=== PATIENT | female | born 1935 ===

== ENCOUNTER 2017-10-05 13:52 | Emergency (ER) | payer OTHER ==
[2017-10-05 14:16] VITALS: TEMP 99.3; O2SAT 95
[2017-10-05 15:48] LABS: BASO # 0.1 K/uL (0.0-0.2); BASO % 2.2 % (0.0-2.0); EOS # 0.3 K/uL (0.0-0.7); EOS % 4.5 % (0.0-4.0); LYMPH # 1.6 K/uL (1.0-4.3); LYMPH % 28.8 % (20.0-40.0); MEAN CORPUSCULAR HEMOGLOBIN 31.1 pg (27.0-31.0); MEAN CORPUSCULAR HGB CONC 35.1 g/dL (33.0-37.0); MEAN PLATELET VOLUME 7.4 fL (7.2-11.7); MONO # 0.5 K/uL (0.0-0.8); MONO % 8.4 % (0.0-10.0); NEUT # 3.1 K/uL (1.8-7.0); NEUT % 56.1 % (50.0-75.0); RBC 4.17 Mil/uL (3.80-5.20); RED CELL DISTRIBUTION WIDTH 13.2 % (11.5-14.5); WHITE BLOOD COUNT 5.6 K/uL (4.8-10.8)
[2017-10-05 16:01] LABS: ALB/GLOB RATIO 1.2 (1.0-2.1); ALBUMIN 3.9 g/dL (3.5-5.0); ALT/SGPT 16 U/L (9-52); AST/SGOT 29 U/L (14-36); BLOOD UREA NITROGEN 19 mg/dL (7-17); CALCIUM 8.9 mg/dl (8.6-10.4); GFR AFRICAN-AMERICAN > 60; GFR NON-AFRICAN AMERICAN > 60
[2017-10-05 16:03] LABS: MEAN CELL VOLUME 88.7 fL (81.0-99.0)
--- NOTE | 2017-10-05 16:22 | C.PDOC ---
History Of Present Illness Pt c/o b/l eye itching an tearing. Pt's BP was found to be elevated. He has a h/ o HTN. She is on Atenolol 100mg and Amlodipine 10mg daily. Family states that she ran out of her Atenolol yesterday and she took her last dose of Amlodipine today. They are requesting med refill. Time Seen by Provider: 10/05/17 14:17 Chief Complaint (Nursing): Eye Problem History Per: Patient, Family Onset/Duration Of Symptoms: Days (about 2 weeks) Current Symptoms Are (Timing): Still Present Injury To Eye?: No Severity: Moderate Quality: Other (Itchy) Associated Symptoms: Itching, Discharge From Eye (watery) Additional History Per: Prior Records Past Medical History Reviewed: Historical Data, Nursing Documentation, Vital Signs Vital Signs: Last Vital Signs Temp 99.3 F 10/05/17 14:12 Pulse 65 10/05/17 16:29 Resp 20 10/05/17 16:29 BP 185/93 H 10/05/17 16:29 Pulse Ox 95 10/05/17 16:29 - Medical History PMH: HTN - [facility] Procedures INJECT/INFUSE NEC (01/16/13) Family History: States: Unknown Family Hx - Social History Hx Alcohol Use: No Hx Substance Use: No - Immunization History Hx Tetanus Toxoid Vaccination: No Hx Influenza Vaccination: No Hx Pneumococcal Vaccination: No Review Of Systems Except As Marked, All Systems Reviewed And Found Negative. Constitutional: Negative for: Fever Eyes: Positive for: Conjunctivae Inflammation ENT: Negative for: Nose Congestion Cardiovascular: Negative for: Chest Pain Respiratory: Negative for: Shortness of Breath Gastrointestinal: Negative for: Vomiting, Abdominal Pain Musculoskeletal: Negative for: Neck Pain Skin: Negative for: Rash Neurological: Negative for: Weakness, Numbness, Seizures, Altered Mental Status Physical Exam - Physical Exam Appears: Non-toxic, No Acute Distress Skin: Normal Color, Warm, Dry Head: Atraumatic, Normacephalic Eye(s): bilateral: PERRL, EOMI, Other (Conjunctival injection) Neck: Normal ROM, Supple Cardiovascular: Rhythm Regular Respiratory: Normal Breath Sounds, No Accessory Muscle Use Gastrointestinal/Abdominal: Soft, No Tenderness Extremity: Normal ROM Neurological/Psych: Oriented x3, Normal Motor, Normal Sensation ED Course And Treatment - Laboratory Results Result Diagrams: 10/05/17 15:38 10/05/17 15:38 Lab Interpretation: No Acute Changes O2 Sat by Pulse Oximetry: 95 Pulse Ox Interpretation: Normal Reassessment Condition: Improved Progress - Interventions Interventions:: Observation - Medications Administered Oral: Antihistamine(H-1), Antihypertensive - Data Reviewed Data Reviewed: Lab, Old records - Patient Status Patient status: Partially improved - Continuity of Care Discussed patient case with:: Patient, Family-HIPPA compliant, ED Nurse - Patient Plan Patient Plan: Discharge, F/U with PCP, Continue present meds Disposition Counseled Patient/Family Regarding: Studies Performed, Diagnosis, Need For Followup, Rx Given - Disposition Referrals: Stephen Erickson MD [Staff Provider] - Disposition: HOME/ ROUTINE Disposition Time: 16:32 Condition: IMPROVED Additional Instructions: Follow up with your doctor. Return to the ER if you develop chest pain, shortness of breath, worsening of symptoms or if you have any other concerns. Prescriptions: amLODIPine [Norvasc] 10 mg PO DAILY #30 tab Atenolol 100 mg PO DAILY #30 tab Ketotifen Fumarate 1 drop OP BID PRN #1 delmi PRN Reason: Itching / Pruritus Loratadine [Claritin] 10 mg PO DAILY #30 tab Instructions: Seasonal Allergies (DC), High Blood Pressure (DC) Print Language: JORDANIAN - Clinical Impression Clinical Impression: Allergic conjunctivitis, Hypertension
[2017-10-05 16:30] VITALS: BP 185/93; PULSE 65; RESP 20
== END 2017-10-05 16:41 | disposition home or self-care (01) ==
LOC: C.ER 13:52
DX: H10.13 Acute atopic conjunctivitis, bilateral (principal); I10 Essential (primary) hypertension

== ENCOUNTER 2018-01-03 09:02 | Inpatient (IN) | payer MEDICAID, OTHER ==
[2018-01-03 09:03] VITALS: BMI 21.9
--- NOTE | 2018-01-03 09:33 | CT ---
Date of service: 01/03/2018 PROCEDURE: CT HEAD WITHOUT CONTRAST. HISTORY: Code Stroke COMPARISON: None available. TECHNIQUE: Axial computed tomography images were obtained through the head/brain without intravenous contrast. Radiation dose: Total exam DLP = 836.04 mGy-cm. This CT exam was performed using one or more of the following dose reduction techniques: Automated exposure control, adjustment of the mA and/or kV according to patient size, and/or use of iterative reconstruction technique. FINDINGS: HEMORRHAGE: No intracranial hemorrhage. BRAIN: Chronic lacune right thalamus. Ill defined lucency left thalamus is indeterminate in age and follow up CT or MRI is recommended. Otherwise, no CT evidence to suggest a large acute subacute infarct at this time. Good corticomedullary differentiation is seen throughout. Proportional, diffuse expansion of the ventriculosulcal and cisternal spaces is appreciated with white matter lucency compatible with diffuse cerebral atrophy and chronic microangiopathy. No suspicious extra-axial fluid collection is identified and the midline brain anatomy appears grossly nonfocal as imaged. There is no mass effect throughout. VENTRICLES: Unremarkable. No hydrocephalus. CALVARIUM: No fracture or destructive bony lesion identified. Atherosclerotic cavernous internal carotid segments are identified bilaterally. PARANASAL SINUSES: Unremarkable as visualized. No significant inflammatory changes. MASTOID AIR CELLS: Unremarkable as visualized. No inflammatory changes. OTHER FINDINGS: None. IMPRESSION: A small lucency at the left thalamus may reflect a small acute subacute infarct although it may also reflect a chronic lacune. Its appearance is indeterminate. Follow-up CT or MRI is recommended. A chronic lacune is seen the right thalamus. No acute or subacute lobar brain infarction appreciated otherwise with age-appropriate age related neuro degenerative change identified. Findings discussed with Dr. Verduzco with written down and read back verification 01/03/2018, 9:30 a.m..
[2018-01-03 09:41] LABS: BASO # 0.1 K/uL (0.0-0.2); BASO % 1.4 % (0.0-2.0); EOS # 0.1 K/uL (0.0-0.7); EOS % 1.5 % (0.0-4.0); HEMOGLOBIN 11.7 g/dL (11.0-16.0); LYMPH # 0.9 K/uL (1.0-4.3); LYMPH % 15.8 % (20.0-40.0); MEAN CELL VOLUME 89.6 fL (81.0-99.0); MEAN CORPUSCULAR HGB CONC 34.6 g/dL (33.0-37.0); MEAN PLATELET VOLUME 7.5 fL (7.2-11.7); MONO # 0.4 K/uL (0.0-0.8); MONO % 6.4 % (0.0-10.0); NEUT # 4.3 K/uL (1.8-7.0); NEUT % 74.9 % (50.0-75.0); RBC 3.76 Mil/uL (3.80-5.20); RED CELL DISTRIBUTION WIDTH 13.6 % (11.5-14.5); WHITE BLOOD COUNT 5.7 K/uL (4.8-10.8)
[2018-01-03 09:48] LABS: INR 1.1; PROTHROMBIN TIME 11.9 SECONDS (9.7-12.2)
[2018-01-03 09:54] LABS: ALB/GLOB RATIO 1.3 (1.0-2.1); ALBUMIN 3.8 g/dL (3.5-5.0); ALT/SGPT 31 U/L (9-52); AST/SGOT 20 U/L (14-36); BLOOD UREA NITROGEN 30 mg/dL (7-17); CALCIUM 9.2 mg/dl (8.6-10.4); GFR AFRICAN-AMERICAN 58; GFR NON-AFRICAN AMERICAN 48
[2018-01-03 10:05] LABS: LDL CHOLESTEROL 116 mg/dL (0-129)
--- NOTE | 2018-01-03 10:06 | C.PDOC ---
History Of Present Illness 82 y/o female, w/PMhx of HTN, brought to ER by family for evaluation after she felt weak and fell in the morning. Family states that she was crying and she was not able to get up from the floor. Family reports that her speech was not normal so they decided to bring her to the ER. They note that she has been under a lot of stress because her daughter had open- heart surgery. Time Seen by Provider: 01/03/18 09:06 Chief Complaint (Nursing): Weakness/Neurological Deficit History Per: Family History/Exam Limitations: no limitations Onset/Duration Of Symptoms: Hrs Current Symptoms Are (Timing): Still Present Seizure Or Post-ictal Symptoms: None Severity: Moderate - Symptoms Of CVA Associated Symptoms: Impaired Speech Past Medical History Reviewed: Historical Data, Nursing Documentation, Vital Signs Vital Signs: Last Vital Signs Temp 97.5 F L 01/03/18 09:08 Pulse 55 L 01/03/18 11:58 Resp 16 01/03/18 11:58 BP 147/80 01/03/18 11:58 Pulse Ox 97 01/03/18 12:07 - Medical History PMH: HTN Surgical History: No Surg Hx - [facility] Procedures INJECT/INFUSE NEC (01/16/13) Family History: States: No Known Family Hx - Social History Hx Alcohol Use: No Hx Substance Use: No - Immunization History Hx Tetanus Toxoid Vaccination: No Hx Influenza Vaccination: No Hx Pneumococcal Vaccination: No Review Of Systems Except As Marked, All Systems Reviewed And Found Negative. Constitutional: Positive for: Weakness. Negative for: Fever, Chills Cardiovascular: Negative for: Chest Pain Respiratory: Negative for: Cough, Shortness of Breath Neurological: Positive for: Change in Speech Physical Exam - Physical Exam Appears: Non-toxic, No Acute Distress Skin: Normal Color, Warm, Dry Head: Atraumatic, Normacephalic Eye(s): bilateral: Normal Inspection, PERRL, EOMI Nose: Normal Oral Mucosa: Moist Neck: Supple Chest: Symmetrical Cardiovascular: Rhythm Regular Respiratory: Normal Breath Sounds, No Rales, No Rhonchi, No Wheezing Gastrointestinal/Abdominal: Normal Exam, Soft, No Tenderness, No Guarding, No Rebound Neurological/Psych: Normal Cranial Nerves, Normal Motor, Normal Sensation, Other (pt is not speaking, tongue stuck in mouth) Gait: Unable To Assess Extremity: Right: No Drift, Left: No Drift, Upper: No Drift, Lower: No Drift ED Course And Treatment - Laboratory Results Result Diagrams: 01/03/18 09:35 01/03/18 09:35 Lab Interpretation: No Acute Changes ECG: Interpreted By Me ECG Rhythm: Sinus Bradycardia ECG Interpretation: Normal Rate From EC O2 Sat by Pulse Oximetry: 97 (RA) Pulse Ox Interpretation: Normal - Other Rad No standard instances X-Ray: Viewed By Me, Read By Radiologist Interpretation: FINDINGS: LUNGS: Interval worsening of patchy opacities in the mid and lower portion of the lungs since the previous exam. The possibility of pulmonary vascular congestion or less likely multifocal pneumonia should be considered. PLEURA: No significant pleural effusion identified, no pneumothorax apparent. CARDIOVASCULAR: Normal. OSSEOUS STRUCTURES: No significant abnormalities. VISUALIZED UPPER ABDOMEN: Normal. OTHER FINDINGS: Right subclavian vascular stent is noted in place. IMPRESSION: Suspicious for interval worsening of pulmonary vascular congestion since the previous exam. A possibility of infectious or inflammatory process is not totally excluded. - CT Scan/US CT- Head Other Rad Studies (CT/US): Read By Radiologist, Radiology Report Reviewed CT/US Interpretation: Date of service: 01/03/2018. PROCEDURE: CT HEAD WITHOUT CONTRAST. HISTORY: Code Stroke. COMPARISON: None available. TECHNIQUE: Axial computed tomography images were obtained through the head/ brain without intravenous contrast. Radiation dose: Total exam DLP = 836.04 mGy-cm. This CT exam was performed using one or more of the following dose reduction techniques: Automated exposure control, adjustment of the mA and/or kV according to patient size, and/or use of iterative reconstruction technique. FINDINGS: HEMORRHAGE: No intracranial hemorrhage. BRAIN: Chronic lacune right thalamus. Ill defined lucency left thalamus is indeterminate in age and follow up CT or MRI is recommended. Otherwise, no CT evidence to suggest a large acute subacute infarct at this time. Good corticomedullary differentiation is seen throughout. Proportional, diffuse expansion of the ventriculosulcal and cisternal spaces is appreciated with white matter lucency compatible with diffuse cerebral atrophy and chronic microangiopathy. No suspicious extra-axial fluid collection is identified and the midline brain anatomy appears grossly nonfocal as imaged. There is no mass effect throughout. VENTRICLES: Unremarkable. No hydrocephalus. CALVARIUM: No fracture or destructive bony lesion identified. Atherosclerotic cavernous internal carotid segments are identified bilaterally. PARANASAL SINUSES: Unremarkable as visualized. No significant inflammatory changes. MASTOID AIR CELLS: Unremarkable as visualized. No inflammatory changes. OTHER FINDINGS: None. IMPRESSION: A small lucency at the left thalamus may reflect a small acute subacute infarct although it may also reflect a chronic lacune. Its appearance is indeterminate. Follow-up CT or MRI is recommended. A chronic lacune is seen the right thalamus. No acute or subacute lobar brain infarction appreciated otherwise with age-appropriate age related neuro degenerative change identified. Findings discussed with Dr. Verduzco with written down and read back verification 01/03/2018, 9:30 a.m.. Progress Note: Case discussed with neurology buttonhole machine operator who request ASA and MRI. Treated with rectal ASA. Case discussed with Dr Wilson Reassessment Condition: Unchanged - Physician Consult Information Physician Contacted: Keisha Wilson Outcome Of Conversation: admit NIHSS Stroke Scale 2 - Date/Time Evaluation Performed When Was NIHSS Performed: Code Stroke - How Severe is the Stroke Level of Consciousness: 0=Alert LOC to Questions: 0=Both comments correct LOC to commands: 0=Obeys both correctly Best Gaze: 0=Normal Visual: 0=No visual loss Facial: 0=Normal Motor Arm - Left: 0=No drift Motor Arm - Right: 0=No drift Motor Leg - Left: 0=No drift Motor Leg - Right: 0=No drift Limb Ataxia: 0=Absent Sensory: 0=Normal Best Language: 0=No aphasia Dysarthia: 1=Mild to moderate slurring Extinction & Inattention (Neglect): 0=Normal, no object Score: 1 rTPA Inclusion/Exclusion - Refusal of Treatment Patient Refused Treatment: Yes - Inclusion Criteria for Altepase Patient is 18 years or Older: No The Clinical Diagnosis of Ischemic Stroke That is Causing a Potentially Disabling Neurological Deficit: No Time of Onset is Well Established to be Less Than 270 Minute Before Treatment Would Begin: No Risk/Benefit Discussed With Patient/Family Member Present: No - Warning to TPA With Conditions Condition: Stroke Serevity Too Mild Additional Condition (For 3-4.5 Hour Window): Age Greater Than 80 Medical Decision Making Medical Decision Making: Plan: --Labs --CT-Head --CXR --MRI --Aspirin PO Disposition Discussed With DrMonica: Keisha Wilson Doctor Will See Patient In The: Hospital - Disposition Disposition: HOSPITALIZED Disposition Time: 11:00 Condition: STABLE - POA Present On Arrival: None - Clinical Impression Clinical Impression: Speech abnormality, Muscle weakness - PA / BUS ESCORT / Resident Statement MD/DO has reviewed & agrees with the documentation as recorded. - Scribe Statement The provider has reviewed the documentation as recorded by the Kyleribe Campos Lane Provider Attestation All medical record entries made by the Scribe were at my direction and personally dictated by me. I have reviewed the chart and agree that the record accurately reflects my personal performance of the history, physical exam, medical decision making, and the department course for this patient. I have also personally directed, reviewed, and agree with the discharge instructions and disposition. Decision To Admit - Pt Status Changed To: Hospital Disposition Of: Inpatient - Admit Certification Admit to Inpatient:: After my assessment, the patient will require hospitalization for at least two midnights. This is because of the severity of symptoms shown, intensity of services needed, and/or the medical risk in this patient being treated as an outpatient. - InPatient: Physician Admission Certification: I certify that this patient requires 2 or more midnights of care for the following reason:: Speech disturbance. Weakness. R/O CVA - . Bed Request Type: Telemetry Admitting Physician: Keisha Wilson Patient Diagnosis: Speech abnormality, Muscle weakness
--- NOTE | 2018-01-03 10:12 | RAD ---
Date of service: 01/03/2018 HISTORY: Code Stroke COMPARISON: Chest radiographs 10/06/2014. FINDINGS: LUNGS: Overall pulmonary volume diminished. No definite interval airspace disease identified bilaterally. PLEURA: No significant pleural effusion identified, no pneumothorax apparent. CARDIOVASCULAR: Stable cardiac size at upper limits of normal. No pulmonary vascular congestion. Aortic atherosclerosis and ectasis reiterated. OSSEOUS STRUCTURES: No significant abnormalities. VISUALIZED UPPER ABDOMEN: Normal. OTHER FINDINGS: None. IMPRESSION: No interval infiltrate or pleural effusion identified. No pneumothorax bilaterally. Pulmonary volume diminished. No pulmonary vascular congestion.
--- NOTE | 2018-01-03 10:16 | CP.PCM.CON ---
History of Present Illness - History of Present Illness History of Present Illness: Neurology Consult Note for Dr. Bates 82 year old female with PMHx of hypertension and hyperlipidemia presents with complaints of chest discomfort, slurred speech, and generalized weakness. Code Stroke called at 9:10. Per patient's daughter, patient has been complaining of chest pain for the past couple of days. This morning around 6:00, patient began complaining about generalized weakness and trouble speaking due to tongue heaviness. Patient denies any headache, dizziness, vision changes, focal weakness, or sensory loss. ROS POSITIVES: Generalized weakness, trouble speaking, chest discomfort NEGATIVES: headache, dizziness, blurred vision, focal weakness, sensory loss , abdominal pain, nausea, vomiting PMHx: HTN, HLD PSHx: Denies Allergies: Denies Social Hx: Denies Tobacco, EtoH, and illicit drug use Hos: Unspecified Ear infection 3 years ago FamHx: Denies Meds: Amlodipine 10mg, Enalapril 20mg Review of Systems - Review of Systems All systems: reviewed and no additional remarkable complaints except (As per HPI ) Review of Systems: As per HPI Past Patient History - Infectious Disease Hx of Infectious Diseases: None - Past Social History Smoking Status: Never Smoked - CARDIAC Hx Hypertension: Yes - PSYCHIATRIC Hx Substance Use: No - SURGICAL HISTORY Hx Surgeries: No - ANESTHESIA Hx Anesthesia: No Meds Allergies/Adverse Reactions: Allergies Allergy/AdvReac Type Severity Reaction Status Date / Time No Known Allergies Allergy Verified 10/05/17 14:16 Physical Exam - Constitutional Appears: Non-toxic, No Acute Distress - Head Exam Head Exam: ATRAUMATIC, NORMAL INSPECTION, NORMOCEPHALIC - Eye Exam Eye Exam: EOMI, Normal appearance. absent: Scleral icterus - ENT Exam ENT Exam: Mucous Membranes Dry Additional comments: Tongue Swollen. - Neck Exam Neck exam: Positive for: Full Rom - Respiratory Exam Respiratory Exam: absent: Accessory Muscle Use - Cardiovascular Exam Cardiovascular Exam: +S1, +S2. absent: Irregular Rhythm, JVD - GI/Abdominal Exam GI & Abdominal Exam: Normal Bowel Sounds. absent: Tenderness - Neurological Exam Neurological exam: Alert, CN II-XII Intact, Oriented x3 - Expanded Neurological Exam Expanded Patient oriented to: person, place, time Speech: Garbled Speech Cranial nerves: EOM's Intact: Normal, Facial Palsey w/Forehead Movement: Normal , Facial Palsey w/o Forehead Movement: Normal, Facial Sensation: Normal, Gag Reflex: Normal, Tongue Deviation: Normal Ataxia: No Cerebellar Function: Heel to Connell: Normal Upper motor neuron: Babinski Sign: Normal Neuro motor strength exam: Left Upper Extremity: 5, Right Upper Extremity: 5, Left Lower Extremity: 5, Right Lower Extremity: 5 - Psychiatric Exam Psychiatric exam: Normal Affect Results - Vital Signs Recent Vital Signs: Last Vital Signs Temp 97.5 F L 01/03/18 09:08 Pulse 57 L 01/03/18 09:46 Resp 16 01/03/18 09:46 BP 116/66 01/03/18 09:46 Pulse Ox 97 01/03/18 10:06 - Labs Result Diagrams: 01/03/18 09:35 01/03/18 09:35 Labs: Laboratory Results - last 24 hr 01/03/18 01/03/18 01/03/18 09:35 09:35 09:35 WBC 5.7 RBC 3.76 L Hgb 11.7 Hct 33.7 L MCV 89.6 MCH 31.0 MCHC 34.6 RDW 13.6 Plt Count 238 MPV 7.5 Neut % (Auto) 74.9 Lymph % (Auto) 15.8 L Martin % (Auto) 6.4 Eos % (Auto) 1.5 Baso % (Auto) 1.4 Neut # (Auto) 4.3 Lymph # (Auto) 0.9 L Martin # (Auto) 0.4 Eos # (Auto) 0.1 Baso # (Auto) 0.1 PT 11.9 INR 1.1 APTT 30 Sodium 141 Potassium 4.6 Chloride 103 Carbon Dioxide 27 Anion Gap 15 BUN 30 H Creatinine 1.1 Est GFR ( Amer) 58 Est GFR (Non-Af Amer) 48 Random Glucose 119 H Hemoglobin A1c Calcium 9.2 Total Bilirubin 0.4 AST 20 ALT 31 Alkaline Phosphatase 74 Total Protein 6.7 Albumin 3.8 Globulin 2.9 Albumin/Globulin Ratio 1.3 Triglycerides 144 D Cholesterol 187 LDL Cholesterol Direct 116 Blood Type 01/03/18 01/03/18 09:35 09:35 WBC RBC Hgb Hct MCV MCH MCHC RDW Plt Count MPV Neut % (Auto) Lymph % (Auto) Martin % (Auto) Eos % (Auto) Baso % (Auto) Neut # (Auto) Lymph # (Auto) Martin # (Auto) Eos # (Auto) Baso # (Auto) PT INR APTT Sodium Potassium Chloride Carbon Dioxide Anion Gap BUN Creatinine Est GFR ( Amer) Est GFR (Non-Af Amer) Random Glucose Hemoglobin A1c 6.0 Calcium Total Bilirubin AST ALT Alkaline Phosphatase Total Protein Albumin Globulin Albumin/Globulin Ratio Triglycerides Cholesterol LDL Cholesterol Direct Blood Type O POSITIVE Assessment & Plan - Assessment and Plan (Free Text) Assessment: 82 year old female with PMHx of hypertension and hyperlipidemia presents with complaints of chest discomfort, slurred speech, and generalized weakness. Code Stroke called at 9:10. Plan: 1. Code Stroke NIHSS of 0 CT Head w/o contrast (Adm) A small lucency at the left thalamus may reflect a small acute subacute infarct although it may also reflect a chronic lacune. Its appearance is indeterminate. Follow-up CT or MRI is recommended. A chronic lacune is seen the right thalamus. No acute or subacute lobar brain infarction appreciated otherwise with age-appropriate age related neuro degenerative change identified. -Brain MRI -Daily ASA 325 -Blood Pressure Control All management per Dr. Jana Hazel, PGY-1 NIHSS Stroke Scale - Date/Time Evaluation Performed Date Performed: 01/03/18 Time Performed: 09:50 When Was NIHSS Performed: Baseline - How Severe is the Stoke Level of Consciousness: 0=Alert LOC to Questions: 0=Both comments correct LOC to commands: 0=Obeys both correctly Best Gaze: 0=Normal Visual: 0=No visual loss Facial: 0=Normal Motor Arm - Left: 0=No drift Motor Arm - Right: 0=No drift Motor Leg - Left: 0=No drift Motor Leg - Right: 0=No drift Limb Ataxia: 0=Absent Sensory: 0=Normal Best Language: 0=No aphasia Dysarthia: 0=Normal articulation Extinction & Inattention (Neglect): 0=Normal, no object Score: 0 Severity Of Stroke: 0= No Stroke
[2018-01-03 10:20] LABS: HDL CHOLESTEROL 34 mg/dL (30-70)
--- NOTE | 2018-01-03 10:30 | CP.PCM.HP ---
History of Present Illness - History of Present Illness History of Present Illness: 82 year old female with past medical history of HTN, impaired glucose tolerance , latent TB, osteoarthritis presents to the ER for body weakness. Patient states around 6am this morning when she was trying to get dressed she started to feel like her whole body felt weak and her tongue felt heavy and her vision was slightly blurry. She states she felt like she couldn't move her body. She states this has never occurred in the past. She states her grandson found her on the bed and could hear him speaking but was not able to respond. Her grandson called the ambulance who brought her to the hospital. She states these symptoms lasted for 4 hours. She states at that time she did not feel numbness or tingling. She denies current weakness, numbness, tingling, chest pain, palpitations, blurry vision or shortness of breath. Her daughter also states she has noticed her mother has lost about 20lbs in the past year. Patient states she has had a decrease in appetite for the past 1-2 years. Patient also states she recently had an appointment with Dr. Erickson who stopped one of her blood pressure medications (Atenolol) and told her to be evaluated for her instable gait. Patient had a clinic appointment today to be evaluated for her gait instability but per daughter the patient does not was to use a walker or a cane. Patient states she has been feeling like she is going to sway and fall over as she walks for the past 3 months. She states about 15 days ago she fell backwards getting out of the shower but she did not seek medical care. PMD: Dr. Venegas Continuous Wave Operator: Dr. Erickson Past Medical History: HTN, impaired glucose tolerance, latent TB, osteoarthritis Past Surgical History: denies Medications: Amlodipine 10mg daily; Lisinopril 20mg daily; discontinued Atenolol 100mg daily Allergies: NKDA Social History: Lives with daughter but her daughter works all day so patient is home alone for most of the day; denies smoking, illicit drug use, and alcohol use. Present on Admission - Present on Admission Any Indicators Present on Admission: No Review of Systems - Constitutional Constitutional: absent: Chills, Fever, Weakness - EENT Eyes: absent: Blurred Vision - Cardiovascular Cardiovascular: absent: Chest Pain, Dyspnea - Respiratory Respiratory: absent: Dyspnea - Gastrointestinal Gastrointestinal: absent: Abdominal Pain, Constipation, Diarrhea, Nausea, Vomiting - Genitourinary Genitourinary: absent: Dysuria - Musculoskeletal Musculoskeletal: Arthralgias. absent: Muscle Weakness, Numbness, Tingling - Neurological Neurological: absent: Confusion, Dizziness, Headaches, Tingling, Tremor, Weakness Past Patient History - Infectious Disease Hx of Infectious Diseases: None - Past Social History Smoking Status: Never Smoked - CARDIAC Hx Hypertension: Yes - PSYCHIATRIC Hx Substance Use: No - SURGICAL HISTORY Hx Surgeries: No - ANESTHESIA Hx Anesthesia: No Meds Allergies/Adverse Reactions: Allergies Allergy/AdvReac Type Severity Reaction Status Date / Time No Known Allergies Allergy Verified 10/05/17 14:16 Physical Exam - Constitutional Appears: Well, Non-toxic, No Acute Distress - Head Exam Head Exam: ATRAUMATIC, NORMAL INSPECTION - Eye Exam Eye Exam: EOMI, Normal appearance, PERRL. absent: Scleral icterus Pupil Exam: NORMAL ACCOMODATION - ENT Exam ENT Exam: Mucous Membranes Dry - Respiratory Exam Respiratory Exam: Clear to Auscultation Bilateral, NORMAL BREATHING PATTERN - Cardiovascular Exam Cardiovascular Exam: REGULAR RHYTHM, +S1, +S2 - Extremities Exam Extremities exam: Positive for: pedal pulses present. Negative for: normal inspection (right great toe is contracted due to hx of arthritis ), pedal edema , tenderness - Neurological Exam Neurological exam: Alert, CN II-XII Intact, Oriented x3 (patient knows she is in the hospital, January, Katelyn is our current president; per family the patient never knows the year ) - Expanded Neurological Exam Expanded Patient oriented to: person, place, time Speech: Fluid Speech Cranial nerves: EOM's Intact: Normal Cerebellar Function: Finger to Nose: Abnormal Left Sensory exam: Lower Extremity Light Touch: Normal, Upper Extremity Light Touch: Normal Neuro motor strength exam: Left Upper Extremity: 5, Right Upper Extremity: 4, Left Lower Extremity: 4, Right Lower Extremity: 4 Coma Scale Eye Opening: SPONTANEOUS Coma Scale Motor Response: OBEYS COMMANDS Coma Scale Verbal: Oriented Coma Scale Total: 15 - Psychiatric Exam Psychiatric exam: Normal Affect, Normal Mood - Skin Skin Exam: Normal Color Additional comments: bilateral extremities - varicose veins; bilateral great toes - bunions Results - Vital Signs Recent Vital Signs: Last Vital Signs Temp 97.5 F L 01/03/18 09:08 Pulse 51 L 01/03/18 10:16 Resp 16 01/03/18 10:16 BP 125/63 01/03/18 10:16 Pulse Ox 97 01/03/18 10:21 - Labs Result Diagrams: 01/03/18 09:35 01/03/18 09:35 Labs: Laboratory Results - last 24 hr 01/03/18 01/03/18 01/03/18 09:35 09:35 09:35 WBC 5.7 RBC 3.76 L Hgb 11.7 Hct 33.7 L MCV 89.6 MCH 31.0 MCHC 34.6 RDW 13.6 Plt Count 238 MPV 7.5 Neut % (Auto) 74.9 Lymph % (Auto) 15.8 L Bureau % (Auto) 6.4 Eos % (Auto) 1.5 Baso % (Auto) 1.4 Neut # (Auto) 4.3 Lymph # (Auto) 0.9 L Bureau # (Auto) 0.4 Eos # (Auto) 0.1 Baso # (Auto) 0.1 PT 11.9 INR 1.1 APTT 30 Sodium 141 Potassium 4.6 Chloride 103 Carbon Dioxide 27 Anion Gap 15 BUN 30 H Creatinine 1.1 Est GFR ( Amer) 58 Est GFR (Non-Af Amer) 48 Random Glucose 119 H Hemoglobin A1c Calcium 9.2 Total Bilirubin 0.4 AST 20 ALT 31 Alkaline Phosphatase 74 Troponin I < 0.0120 Total Protein 6.7 Albumin 3.8 Globulin 2.9 Albumin/Globulin Ratio 1.3 Triglycerides 144 D Cholesterol 187 LDL Cholesterol Direct 116 HDL Cholesterol 34 Blood Type Antibody Screen 01/03/18 01/03/18 09:35 09:35 WBC RBC Hgb Hct MCV MCH MCHC RDW Plt Count MPV Neut % (Auto) Lymph % (Auto) Bureau % (Auto) Eos % (Auto) Baso % (Auto) Neut # (Auto) Lymph # (Auto) Bureau # (Auto) Eos # (Auto) Baso # (Auto) PT INR APTT Sodium Potassium Chloride Carbon Dioxide Anion Gap BUN Creatinine Est GFR ( Amer) Est GFR (Non-Af Amer) Random Glucose Hemoglobin A1c 6.0 Calcium Total Bilirubin AST ALT Alkaline Phosphatase Troponin I Total Protein Albumin Globulin Albumin/Globulin Ratio Triglycerides Cholesterol LDL Cholesterol Direct HDL Cholesterol Blood Type O POSITIVE Antibody Screen Negative Assessment & Plan - Assessment and Plan (Free Text) Assessment: Body weakness secondary to Subacute Infarct vs. Meningioma - NIH scale: 0 - Imaging: * Head CT: A small lucency at the left thalamus may reflect a small acute subacute infarct although it may also reflect a chronic lacune. Its appearance is indeterminate. Follow-up CT or MRI is recommended. A chronic lacune is seen the right thalamus. No acute or subacute lobar brain infarction appreciated otherwise with age-appropriate age related neuro degenerative change identified. * Brain MRI: No acute intracranial abnormality. Mild chronic microangiopathic changes and mild age-related global parenchymal volume loss. 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 10 x 10 x 7 mm extra-axial mass in the left lateral aspect of the foramina magnum is statistically most compatible with a meningioma. Other dural masses cannot be excluded A dedicated MRI of cervical spine with intravenous contrast would be helpful for definitive evaluation. - Neuro Consult: Dr. Bates --> help appreciated - possibly will consult Neuro-Surgery - patient was given 300mg Aspirin CA in the ER - Patient passed her swallow evaluation - EKG: NSR - Medications: * Aspirin 300mg daily Gait Instability - per patient 3 month history of gait instability - possibly secondary to Meningioma - Physical Therapy History of HTN - Home medication Amlodipine 10mg on hold - Decreased home medication Lisinopril 10mg daily - ECHO (02/28/15): Normal LV systolic function, diastolic dysfunction, LVEF 61% - f/u ECHO - Trop Negative; f/u Trop x2 - continue to monitor History of IGT - Heart healthy/Low carb Diet - hA1c (01/03/18): 6.0 - Lipid Panel (01/03/18): Total Cholesterol 187; LDL 116; HDL 34; Triglycerides 144 - Crestor 5mg HS History of Osteoarthritis - Being followed by outpatient Dr. Erickson - f/u bilateral knee x-rays History of Latent TB - Chest X-ray: No interval infiltrate or pleural effusion identified. No pneumothorax bilaterally. Pulmonary volume diminished. No pulmonary vascular congestion. Prophylaxis - Aspirin 300mg daily - DVT risk of 3: Heparin SC q8h; SCDs - GI prophylaxis not indicated - Fall Risk - PT/OT Case discussed with Dr. Katie Rogers PGY-2
--- NOTE | 2018-01-03 12:53 | MRI ---
Date of service: 01/03/2018 PROCEDURE: MRI BRAIN WITHOUT CONTRAST HISTORY: Follow Up Brain MRI post CT Head. COMPARISON: Noncontrast head CT from 01/03/2018 TECHNIQUE: Multiplanar, multisequence MR images of the brain were obtained without intravenous contrast enhancement. FINDINGS: HEMORRHAGE: None DWI: No evidence of an acute or early subacute infarction. BRAIN PARENCHYMA: There are old lacunar infarctions in the centrum semiovale. There is a small lacunar infarction in the left thalamus. There are mild chronic microangiopathic changes. There is no mass, mass effect or abnormal extra-axial fluid collection. The midline sagittal structures are normal. VENTRICLES: There is moderate age-related global parenchymal volume loss and proportionate enlargement of the ventricles and cortical sulci. CRANIUM: There is normal bone marrow signal pattern. ORBITS: Grossly unremarkable. PARANASAL SINUSES/MASTOIDS: There is mild mucosal thickening in the paranasal sinuses and a small retention cyst/ polyp in the left maxillary sinus. The mastoid air cells are predominantly clear. VASCULAR SYSTEM: There are normal signal voids in the larger intracranial arteries. OTHER FINDINGS: Incompletely imaged and characterized is 10 x 10 x 7 mm T1 isointense, T2 hypo intense extra-axial mass which also demonstrates restricted diffusion in the left upper cervical canal at the level of the odontoid process. IMPRESSION: No acute intracranial abnormality. Mild chronic microangiopathic changes and mild age-related global parenchymal volume loss. 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 10 x 10 x 7 mm extra-axial mass in the left lateral aspect of the foramina magnum is statistically most compatible with a meningioma. Other dural masses cannot be excluded A dedicated MRI of cervical spine with intravenous contrast would be helpful for definitive evaluation.
[2018-01-03] MEDS ORDERED: Sodium Chloride 0.9% 1,000 ML IV SCH (14:00)
[2018-01-03] MEDS ORDERED: Sodium Chloride 0.9% 1,000 ML ONE (14:08)
[2018-01-03 15:14] LABS: CK-MB 1.81 ng/mL (0.0-3.38)
[2018-01-03] MEDS ORDERED: Gadodiamide 287 mg/ml 20 ml IV ONE (18:25)
--- NOTE | 2018-01-03 18:45 | MRI ---
Date of service: 01/03/2018 PROCEDURE: MR Angiography of the neck without contrast HISTORY: Code Stroke COMPARISON: None available. TECHNIQUE: 3D [id number] angiography of the neck was performed. Rotating maximum intensity projection images of the cervical carotid and vertebral arteries were generated. The origins of the common carotid arteries were not visualized, which is a limitation inherent to the non-contrast time of flight technique. FINDINGS: RIGHT CAROTID ARTERIES: Common Carotid Artery: Normal. Carotid Bifurcation: Normal. Internal Carotid Artery:Normal. External Carotid Artery (proximal branches): Normal. LEFT CAROTID ARTERIES: Common Carotid Artery: Normal. Carotid Bifurcation: Normal. Internal Carotid Artery:Normal. External Carotid Artery (proximal branches): Normal. VERTEBRAL ARTERIES: Right Vertebral Artery: Normal. The right vertebral artery is hypoplastic, an anatomic variant. Left Vertebral Artery: Normal. OTHER FINDINGS: None. IMPRESSION: Normal MR Angiography of the neck.
--- NOTE | 2018-01-03 18:48 | MRI ---
Date of service: 01/03/2018 PROCEDURE: Magnetic Resonance Angiography Brain HISTORY: Code Stroke COMPARISON: None available. TECHNIQUE: 3D time of flight MR angiography of the intracranial arteries was performed. Rotating maximum intensity projection images were generated. FINDINGS: INTERNAL CAROTID ARTERIES: Normal flow related signal. The skull base, petrous, cavernous and supraclinoid segments are bilaterally widely patient. ANTERIOR CEREBRAL ARTERIES: Normal flow related signal. A1 and A2 segments are widely patent. Smaller distal branches unremarkable, as visualized. MIDDLE CEREBRAL ARTERIES: Normal flow related signal. M1 and M2 segments are widely patent. Perisylvian branches grossly symmetric. POSTERIOR CIRCULATION: Basilar Artery: Normal flow related signal. Distal Vertebral Arteries: Normal flow related signal. Posterior Cerebral Arteries: Normal flow related signal. There is origin of the left posterior cerebral artery, an anatomic variant. Posterior Inferior Cerebellar Arteries: Normal flow related signal. ANEURYSM/ VASCULAR MALFORMATIONS: None. OTHER FINDINGS: None. IMPRESSION: Unremarkable MR angiography of the brain.
--- NOTE | 2018-01-03 18:58 | RAD ---
Date of service: 01/03/2018 PROCEDURE: Bilateral Knee Radiographs. HISTORY: hx of osteoarthritis COMPARISON: None. FINDINGS: BONES: Right Knee: Normal. No fracture. Left Knee: Normal. No fracture. JOINTS: Right Knee: Normal. No osteoarthritis. Left knee: Normal. No osteoarthritis. SOFT TISSUES: Right Knee: Normal. Left Knee: Normal. JOINT EFFUSION: Right Knee: None. Left Knee: None. OTHER FINDINGS: None. IMPRESSION: Unremarkable radiographs of the knees.
[2018-01-03 21:32] LABS: CK-MB 1.86 ng/mL (0.0-3.38)
[2018-01-04 08:16] LABS: BASO # 0.1 K/uL (0.0-0.2); BASO % 2.6 % (0.0-2.0); EOS # 0.1 K/uL (0.0-0.7); EOS % 1.8 % (0.0-4.0); HEMOGLOBIN 12.6 g/dL (11.0-16.0); LYMPH # 1.5 K/uL (1.0-4.3); MEAN CELL VOLUME 90.4 fL (81.0-99.0); MEAN CORPUSCULAR HEMOGLOBIN 31.5 pg (27.0-31.0); MEAN CORPUSCULAR HGB CONC 34.8 g/dL (33.0-37.0); MONO # 0.4 K/uL (0.0-0.8); MONO % 8.3 % (0.0-10.0); NEUT # 2.5 K/uL (1.8-7.0); NEUT % 54.3 % (50.0-75.0); RED CELL DISTRIBUTION WIDTH 13.5 % (11.5-14.5); WHITE BLOOD COUNT 4.7 K/uL (4.8-10.8)
[2018-01-04 08:32] LABS: ALB/GLOB RATIO 1.4 (1.0-2.1); ALBUMIN 4.1 g/dL (3.5-5.0); ALT/SGPT 27 U/L (9-52); AST/SGOT 36 U/L (14-36); BLOOD UREA NITROGEN 24 mg/dL (7-17); CALCIUM 9.3 mg/dl (8.6-10.4); GFR AFRICAN-AMERICAN > 60; GFR NON-AFRICAN AMERICAN > 60
--- NOTE | 2018-01-04 08:58 | MRI ---
Date of service: 01/03/2018 PROCEDURE: MRI brain with intravenous contrast HISTORY: Further eval of meningioma COMPARISON: MRI brain without contrast performed earlier the same day TECHNIQUE: Multiplanar MRI of the brain was performed after intravenous administration of 11 cc Omniscan. FINDINGS: There is a redemonstration of 11 x 9 x 2 mm homogeneously enhancing dural-based extra-axial mass in the left upper cervical canal at the level of C2. There is also an associated dural tail. No evidence of mass effect on the upper cervical cord. IMPRESSION: Findings are most compatible with a 11 x 9 x 10 mm extra-axial mass in the left cervical canal at the level of C2, statistically most compatible with a meningioma. No evidence of cord compression. The other differential considerations include dural-based masses including metastasis. A preliminary report was provided by [employer] [facility].
--- NOTE | 2018-01-04 09:47 | CP.PCM.PN ---
Subjective - Date & Time of Evaluation Date of Evaluation: 01/04/18 Time of Evaluation: 10:00 - Subjective Subjective: Neurology Progress Note for Dr. Bates Patient seen and examined at bedside. States that she is doing well. She denies any headache, worsening vision changes, chest pain, SOB, new muscle weakness or sensory loss. Objective - Vital Signs/Intake and Output Vital Signs (last 24 hours): Temp Pulse Resp BP Pulse Ox 98.3 F 63 18 165/84 H 96 01/04/18 07:00 01/04/18 07:00 01/04/18 07:00 01/04/18 07:00 01/04/18 07:00 Intake and Output: 01/04/18 01/04/18 06:59 18:59 Intake Total 400 Balance 400 - Medications Medications: Current Medications Aspirin (Aspirin) 325 mg PO DAILY [facility] Heparin Sodium (Porcine) (Heparin) 5,000 units SC Q8 [facility] Last Admin: 01/04/18 05:21 Dose: 5,000 units Lisinopril (Zestril) 10 mg PO DAILY [facility] Last Admin: 01/03/18 14:15 Dose: 10 mg Rosuvastatin Calcium (Crestor) 5 mg PO HS [facility] Last Admin: 01/03/18 21:51 Dose: 5 mg - Labs Labs: 01/04/18 08:07 01/04/18 08:07 PT 11.9 SECONDS (9.7-12.2) 01/03/18 09:35 INR 1.1 01/03/18 09:35 APTT 30 SECONDS (21-34) 01/03/18 09:35 - Constitutional Appears: Non-toxic, No Acute Distress - Head Exam Head Exam: ATRAUMATIC, NORMAL INSPECTION, NORMOCEPHALIC - Eye Exam Eye Exam: EOMI, Normal appearance, PERRL - Respiratory Exam Respiratory Exam: absent: Accessory Muscle Use - Cardiovascular Exam Cardiovascular Exam: +S1, +S2 - GI/Abdominal Exam GI & Abdominal Exam: Soft, Tenderness - Neurological Exam Neurological Exam: Alert, Awake, CN II-XII Intact, Oriented x3 Neuro motor strength exam: Left Upper Extremity: 5, Right Upper Extremity: 5, Left Lower Extremity: 5, Right Lower Extremity: 5 - Skin Skin Exam: Normal Color, Warm Assessment and Plan - Assessment and Plan (Free Text) Assessment: 82 year old female with PMHx of hypertension and hyperlipidemia presents with complaints of chest discomfort, slurred speech, and generalized weakness. Code Stroke called at 9:10. Plan: 1. Code Stroke NIHSS of 0 CT Head w/o contrast (Adm) A small lucency at the left thalamus may reflect a small acute subacute infarct although it may also reflect a chronic lacune. Its appearance is indeterminate. Follow-up CT or MRI is recommended. A chronic lacune is seen the right thalamus. No acute or subacute lobar brain infarction appreciated otherwise with age-appropriate age related neuro degenerative change identified. Brain MRI w/o contrast (01/03/18): No acute intracranial abnormality. Mild chronic microangiopathic changes and mild age-related global parenchymal volume loss. 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 10 x 10 x 7 mm extra-axial mass in the left lateral aspect of the foramina magnum is statistically most compatible with a meningioma. Other dural masses cannot be excluded A dedicated MRI of cervical spine with intravenous contrast would be helpful for definitive evaluation. Brain/Neck MRA (01/03/18): NEGATIVE -Continue Daily ASA 325 -Continue Blood Pressure Control -Continue PT/OT -Outpatient follow up after DC 2. Meningioma. Brain MRI w/ contrast (01/03/18) Findings are most compatible with a 11 x 9 x 10 mm extra-axial mass in the left cervical canal at the level of C2, statistically most compatible with a meningioma. No evidence of cord compression. The other differential considerations include dural-based masses including metastasis. All management per Dr. Jana Hazel, PGY-1
[2018-01-04 16:03] VITALS: RESP 20
--- NOTE | 2018-01-04 18:18 | CP.PCM.PN ---
Subjective - Date & Time of Evaluation Date of Evaluation: 01/04/18 Time of Evaluation: 11:30 - Subjective Subjective: PGY-1 Medicine Progress Note for Dr. Wilson's Service Patient seen and examined at bedside. Patient offers no acute complaints. As per PT/OT patient has unsteady gait and requires rolling walker. Patient denies weakness, headache, vision changes, dizziness, chest pain, sob, n/v, constipation or diarrhea. Objective - Vital Signs/Intake and Output Vital Signs (last 24 hours): Temp Pulse Resp BP Pulse Ox 97.7 F 68 20 128/66 98 01/04/18 15:16 01/04/18 15:58 01/04/18 15:16 01/04/18 15:16 01/04/18 15:16 Intake and Output: 01/04/18 01/04/18 06:59 18:59 Intake Total 1200 Balance 1200 - Medications Medications: Current Medications Aspirin (Aspirin) 325 mg PO DAILY [facility] Last Admin: 01/04/18 10:50 Dose: 325 mg Heparin Sodium (Porcine) (Heparin) 5,000 units SC Q8 [facility] Last Admin: 01/04/18 14:45 Dose: 5,000 units Lisinopril (Zestril) 10 mg PO DAILY [facility] Last Admin: 01/04/18 10:50 Dose: 10 mg Rosuvastatin Calcium (Crestor) 5 mg PO HS [facility] Last Admin: 01/03/18 21:51 Dose: 5 mg - Labs Labs: 01/04/18 08:07 01/04/18 08:07 PT 11.9 SECONDS (9.7-12.2) 01/03/18 09:35 INR 1.1 01/03/18 09:35 APTT 30 SECONDS (21-34) 01/03/18 09:35 - Constitutional Appears: Non-toxic, No Acute Distress - Head Exam Head Exam: NORMAL INSPECTION, NORMOCEPHALIC - Eye Exam Eye Exam: EOMI, Normal appearance. absent: Nystagmus, Scleral icterus - Respiratory Exam Respiratory Exam: Clear to Ausculation Bilateral, NORMAL BREATHING PATTERN. absent: Rales, Wheezes - Cardiovascular Exam Cardiovascular Exam: REGULAR RHYTHM, +S1, +S2. absent: Murmur - GI/Abdominal Exam GI & Abdominal Exam: Soft, Normal Bowel Sounds. absent: Bruit, Distended, Tenderness - Extremities Exam Extremities Exam: Normal Inspection. absent: Calf Tenderness, Pedal Edema - Neurological Exam Neurological Exam: Alert, Awake, CN II-XII Intact, Oriented x3. absent: Normal Gait Neuro motor strength exam: Left Upper Extremity: 5, Right Upper Extremity: 5, Left Lower Extremity: 5, Right Lower Extremity: 5 - Psychiatric Exam Psychiatric exam: Normal Affect, Normal Mood - Skin Skin Exam: Normal Color. absent: Abrasion, Rash Assessment and Plan - Assessment and Plan (Free Text) Assessment: Patient is a 82 y.o female who presents to the hospital for body weakness; CT head, Brain MRI w & w/o contrast ordered; Brain MRI shows meningioma with no evidence of cord compression Plan: TIA vs Stroke Stroke unlikely as symptoms have resolved with no hemiparesis or focal neurologic deficits 01/03/18: CT Head w/o contrast: A small lucency at the left thalamus may reflect a small acute subacute infarct although it may also reflect a chronic lacune. Its appearance is indeterminate. Follow-up CT or MRI is recommended. A chronic lacune is seen the right thalamus. No acute or subacute lobar brain infarction appreciated otherwise with age-appropriate age related neuro degenerative change identified. 01/03/18: Brain MRI w/o contrast: No acute intracranial abnormality. Mild chronic microangiopathic changes and mild age-related global parenchymal volume loss. 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 10 x 10 x 7 mm extra-axial mass in the left lateral aspect of the foramina magnum is statistically most compatible with a meningioma. Other dural masses cannot be excluded A dedicated MRI of cervical spine with intravenous contrast would be helpful for definitive evaluation. 01/03/18: Brain MRI w/ contrast: Brain MRI w/ contrast (01/03/18) Findings are most compatible with a 11 x 9 x 10 mm extra-axial mass in the left cervical canal at the level of C2, statistically most compatible with a meningioma. No evidence of cord compression. The other differential considerations include dural-based masses including metastasis. 01/03/18: Brain/Neck MRA: Negative Neurology consulted: Dr. Bates following: recommendations are to continue daily asa 325mg, continue blood pressure control, continue ot/pt, outpatient followup Meningioma 01/03/18 Brain MRI with contrast: Shows meningioma without evidence of cord compression Follow up outpatient with Dr. Bates Hypertension BP: 128/66 Continue lisinopril 10mg po daily Hyperlipidemia Continue Crestor 5mg HS Lipid Panel (01/03/18): Total Cholesterol 187; LDL 116; HDL 34; Triglycerides 144 Gait Instability PT/OT recommends rolling walker PT/OT to meet with pt's aunt who lives in home to teach how to use assist device Prophylaxis GI: Not indicated at this time DVT: Heparin 5000 units sc q8 Aspirin 325mg po daily Disposition: Likely discharge tomorrow after PT/OT meeting with patient and aunt for rolling walker training [place] Mckeon PGY-1
[2018-01-05 08:16] LABS: BASO # 0.1 K/uL (0.0-0.2); BASO % 1.5 % (0.0-2.0); EOS # 0.1 K/uL (0.0-0.7); EOS % 2.3 % (0.0-4.0); HEMOGLOBIN 12.3 g/dL (11.0-16.0); LYMPH # 1.4 K/uL (1.0-4.3); LYMPH % 29.4 % (20.0-40.0); MEAN CELL VOLUME 89.1 fL (81.0-99.0); MEAN CORPUSCULAR HEMOGLOBIN 31.8 pg (27.0-31.0); MEAN CORPUSCULAR HGB CONC 35.7 g/dL (33.0-37.0); MEAN PLATELET VOLUME 8.1 fL (7.2-11.7); MONO # 0.4 K/uL (0.0-0.8); MONO % 7.6 % (0.0-10.0); NEUT # 2.8 K/uL (1.8-7.0); NEUT % 59.2 % (50.0-75.0); NRBC % 0.1 % (0.0-2.0); RBC 3.86 Mil/uL (3.80-5.20); RED CELL DISTRIBUTION WIDTH 13.6 % (11.5-14.5); WHITE BLOOD COUNT 4.8 K/uL (4.8-10.8)
[2018-01-05 08:23] VITALS: BP 109/80; PULSE 60; TEMP 98; O2SAT 98
[2018-01-05 08:35] LABS: ALB/GLOB RATIO 1.6 (1.0-2.1); ALBUMIN 3.7 g/dL (3.5-5.0); ALT/SGPT 28 U/L (9-52); AST/SGOT 19 U/L (14-36); BLOOD UREA NITROGEN 24 mg/dL (7-17); CALCIUM 8.6 mg/dl (8.6-10.4); GFR AFRICAN-AMERICAN > 60; GFR NON-AFRICAN AMERICAN > 60
--- NOTE | 2018-01-05 18:07 | CARD ---
APPROVED REPORT Date of service: 01/04/2018 EXAM: Two-dimensional and M-mode echocardiogram with Doppler and color Doppler. Other Information Quality : GoodRhythm : Bradycardia INDICATION CVA/TIA RISK FACTORS Hypertension 2D DIMENSIONS IVSd0.9 (0.7-1.1cm)LVDd3.4 (3.9-5.9cm) PWd1.0 (0.7-1.1cm)LVDs1.9 (2.5-4.0cm) FS (%) 44.0 %LVEF (%)76.3 (>50%) M-Mode DIMENSIONS Left Atrium (MM)2.15 (2.5-4.0cm)IVSd0.96 (0.7-1.1cm) Aortic Root3.43 (2.2-3.7cm)LVDd3.16 (4.0-5.6cm) Aortic Cusp Exc.2.03 (1.5-2.0cm)PWd0.79 (0.7-1.1cm) FS (%) 37 %LVDs1.98 (2.0-3.8cm) LVEF (%)69 (>50%) Aortic Valve AI P 1/2 [id number] Mitral Valve MV E Yvywmasg41.6cm/sMV A Gdynstrd02.1cm/sE/A ratio0.7 TDI E/Lateral E'0.0E/Medial E'0.0 Tricuspid Valve TR Peak Octiletb611yo/sTR Peak Gr.[id number] LEFT VENTRICLE The left ventricle is normal size. There is normal left ventricular wall thickness. The left ventricular function is normal. The left ventricular ejection fraction is within the normal range. There is normal LV segmental wall motion. Transmitral Doppler flow pattern is abnormal. RIGHT VENTRICLE The right ventricle is normal size. ATRIA The left atrium size is normal. The right atrium size is normal. AORTIC VALVE There is mild aortic regurgitation. MITRAL VALVE Mitral regurgitation is mild. TRICUSPID VALVE There is mild to moderate tricuspid regurgitation. <Conclusion> Normal LV systolic function. Diastolic dysfunction. Normal chamber size. Mild AR. Mild MR. Mild to moderate TR.
--- NOTE | 2018-01-05 19:14 | CP.PCM.DIS ---
Provider - Provider Date of Admission: 01/03/18 10:16 Attending physician: Keisha Wilson DO Primary care physician: [facility] Consults: Dr. Bates Neurologist Time Spent in preparation of Discharge (in minutes): 45 Diagnosis - Discharge Diagnosis (1) Muscle weakness Status: Resolved (2) Speech abnormality Status: Resolved Hospital Course - Lab Results Lab Results: Most Recent Lab Values WBC 4.8 K/uL (4.8-10.8) 01/05/18 08:03 RBC 3.86 Mil/uL (3.80-5.20) 01/05/18 08:03 Hgb 12.3 g/dL (11.0-16.0) 01/05/18 08:03 Hct 34.4 % (34.0-47.0) 01/05/18 08:03 MCV 89.1 fL (81.0-99.0) 01/05/18 08:03 MCH 31.8 pg (27.0-31.0) H 01/05/18 08:03 MCHC 35.7 g/dL (33.0-37.0) 01/05/18 08:03 RDW 13.6 % (11.5-14.5) 01/05/18 08:03 Plt Count 221 K/uL (130-400) 01/05/18 08:03 MPV 8.1 fL (7.2-11.7) 01/05/18 08:03 Neut % (Auto) 59.2 % (50.0-75.0) 01/05/18 08:03 Lymph % (Auto) 29.4 % (20.0-40.0) 01/05/18 08:03 Rowan % (Auto) 7.6 % (0.0-10.0) 01/05/18 08:03 Eos % (Auto) 2.3 % (0.0-4.0) 01/05/18 08:03 Baso % (Auto) 1.5 % (0.0-2.0) 01/05/18 08:03 Neut # (Auto) 2.8 K/uL (1.8-7.0) 01/05/18 08:03 Lymph # (Auto) 1.4 K/uL (1.0-4.3) 01/05/18 08:03 Rowan # (Auto) 0.4 K/uL (0.0-0.8) 01/05/18 08:03 Eos # (Auto) 0.1 K/uL (0.0-0.7) 01/05/18 08:03 Baso # (Auto) 0.1 K/uL (0.0-0.2) 01/05/18 08:03 PT 11.9 SECONDS (9.7-12.2) 01/03/18 09:35 INR 1.1 01/03/18 09:35 APTT 30 SECONDS (21-34) 01/03/18 09:35 Sodium 143 mmol/L (132-148) 01/05/18 08:03 Potassium 4.3 mmol/L (3.6-5.2) 01/05/18 08:03 Chloride 106 mmol/L (98-107) 01/05/18 08:03 Carbon Dioxide 26 mmol/L (22-30) 01/05/18 08:03 Anion Gap 16 (10-20) 01/05/18 08:03 BUN 24 mg/dL (7-17) H 01/05/18 08:03 Creatinine 0.8 mg/dL (0.7-1.2) 01/05/18 08:03 Est GFR ( Amer) > 60 01/05/18 08:03 Est GFR (Non-Af Amer) > 60 01/05/18 08:03 POC Glucose (mg/dL) 129 mg/dL (65-110) H 01/03/18 09:06 Random Glucose 105 mg/dL (65-105) 01/05/18 08:03 Hemoglobin A1c 6.0 % (4.2-6.5) 01/03/18 09:35 Calcium 8.6 mg/dl (8.6-10.4) 01/05/18 08:03 Phosphorus 3.5 mg/dL (2.5-4.5) 01/05/18 08:03 Magnesium 2.0 mg/dL (1.6-2.3) 01/05/18 08:03 Total Bilirubin 0.4 mg/dL (0.2-1.3) 01/05/18 08:03 AST 19 U/L (14-36) 01/05/18 08:03 ALT 28 U/L (9-52) 01/05/18 08:03 Alkaline Phosphatase 85 U/L (38-126) 01/05/18 08:03 Total Creatine Kinase 65 U/L (30-135) 01/03/18 20:46 CK-MB (Mass) 1.86 ng/mL (0.0-3.38) 01/03/18 20:46 Troponin I < 0.0120 ng/mL (0.00-0.120) 01/03/18 20:46 Total Protein 6.1 g/dL (6.3-8.3) L 01/05/18 08:03 Albumin 3.7 g/dL (3.5-5.0) 01/05/18 08:03 Globulin 2.4 gm/dL (2.2-3.9) 01/05/18 08:03 Albumin/Globulin Ratio 1.6 (1.0-2.1) 01/05/18 08:03 Triglycerides 144 mg/dL (0-149) D 01/03/18 09:35 Cholesterol 187 mg/dL (0-199) 01/03/18 09:35 LDL Cholesterol Direct 116 mg/dL (0-129) 01/03/18 09:35 HDL Cholesterol 34 mg/dL (30-70) 01/03/18 09:35 Blood Type O POSITIVE 01/03/18 09:35 Antibody Screen Negative 01/03/18 09:35 - Hospital Course Hospital Course: PMD: Dr. Venegas Oil Changer: Dr. Erickson Past Medical History: HTN, impaired glucose tolerance, latent TB, osteoarthritis Past Surgical History: denies Medications: Amlodipine 10mg daily; Lisinopril 20mg daily; discontinued Atenolol 100mg daily Allergies: NKDA Social History: Lives with daughter but her daughter works all day so patient is home alone for most of the day; denies smoking, illicit drug use, and alcohol use. Upon Admission: 82 year old female with past medical history of HTN, impaired glucose tolerance , latent TB, osteoarthritis presents to the ER for body weakness. Patient states around 6am this morning when she was trying to get dressed she started to feel like her whole body felt weak and her tongue felt heavy and her vision was slightly blurry. She states she felt like she couldn't move her body. She states this has never occurred in the past. She states her grandson found her on the bed and could hear him speaking but was not able to respond. Her grandson called the ambulance who brought her to the hospital. She states these symptoms lasted for 4 hours. She states at that time she did not feel numbness or tingling. She denies current weakness, numbness, tingling, chest pain, palpitations, blurry vision or shortness of breath. Her daughter also states she has noticed her mother has lost about 20lbs in the past year. Patient states she has had a decrease in appetite for the past 1-2 years. Patient also states she recently had an appointment with Dr. Erickson who stopped one of her blood pressure medications (Atenolol) and told her to be evaluated for her instable gait. Patient had a clinic appointment today to be evaluated for her gait instability but per daughter the patient does not was to use a walker or a cane. Patient states she has been feeling like she is going to sway and fall over as she walks for the past 3 months. She states about 15 days ago she fell backwards getting out of the shower but she did not seek medical care. Hospital Course: Patient is 82 y.o female who came to ER for body weakness, unsteady gait, and difficulty with speech; CT head w/ and w/o contrast along with Brain MRI were ordered; No stroke seen on imaging but a meningioma was found on imaging however not compressing or causing mass effect; possible TIA and was discharged with Aspirin, Lisinopril, Crestor; patient symptoms resolved and is educated to followup outpatient Patient is stable for discharge to home after PT/OT team meets with patient and aunt 01/05/2018 to discuss rolling walker as per Dr. Wilson. Per PT recommendations patient is unstable to ambulated without walking device. Upon discharge, patient will be provided an ambulatory device, rolling walker. Patient advised to follow with PMD in clinic at [facility] 1 week after discharge. Patient given instructions on how to contact clinic. Patient also instructed to followup with neurologist Dr. Bates 3 week after discharge. Patient should continue taking medications as listed: Aspirin 81mg by mouth, #30 no refils, once a day, Crestor 5mg once at night, #30 no refils,, and Lisinopril 10mg once a day, #30 no refills. Patient instructed to return if symptoms recur or worsen. Patient understands and agrees to plan above. Medications: 1.Aspirin 81 mg PO Daily, #30, No refills 2.Lisinopril 10mg PO Daily, #30, No refills 3. Crestor 5mg PO HS, #30, No refills Discharge Exam - Head Exam Head Exam: NORMAL INSPECTION, NORMOCEPHALIC - Eye Exam Eye Exam: EOMI, Normal appearance. absent: Scleral icterus Pupil Exam: NORMAL ACCOMODATION - ENT Exam ENT Exam: Mucous Membranes Moist, Normal Exam - Respiratory Exam Respiratory Exam: Clear to PA & Lateral, NORMAL BREATHING PATTERN. absent: Rales, Rhonchi, Wheezes - Cardiovascular Exam Cardiovascular Exam: REGULAR RHYTHM, +S1, +S2. absent: Systolic Murmur - GI/Abdominal Exam GI & Abdominal Exam: Normal Bowel Sounds, Soft. absent: Tenderness - Extremities Exam Extremities exam: normal inspection, pedal pulses present - Back Exam Back exam: NORMAL INSPECTION. absent: CVA tenderness (L), CVA tenderness (R) - Neurological Exam Neurological exam: Alert, CN II-XII Intact, Oriented x3 - Psychiatric Exam Psychiatric exam: Normal Affect, Normal Mood - Skin Skin Exam: Normal Color, Warm Discharge Plan - Discharge Medications Prescriptions: Aspirin 81 mg PO DAILY #30 tab.chew Lisinopril [Zestril] 10 mg PO DAILY #30 tab Rosuvastatin Calcium [Crestor] 5 mg PO HS #30 tab - Follow Up Plan Condition: STABLE Disposition: HOME/ ROUTINE Instructions: Heart Healthy Diet, Stroke (DC), Aspirin, Lisinopril, Rosuvastatin Additional Instructions: Patient is stable for discharge to home after PT/OT team meets with patient and aunt 01/05/2018 to discuss rolling walker as per Dr. Wilson. Per PT recommendations patient is unstable to ambulated without walking device. Upon discharge, patient will be provided an ambulatory device, rolling walker. Patient advised to follow with PMD in clinic at [facility] 1 week after discharge. Patient given instructions on how to contact clinic. Patient also instructed to followup with neurologist Dr. Bates 3 week after discharge. Patient should continue taking medications as listed: Aspirin 81mg by mouth, #30 no refils, once a day, Crestor 5mg once at night, #30 no refils,, and Lisinopril 10mg once a day, #30 no refills. Patient instructed to return if symptoms recur or worsen. Patient understands and agrees to plan above. Medications: 1.Aspirin 81 mg PO Daily, #30, No refills 2.Lisinopril 10mg PO Daily, #30, No refills 3. Crestor 5mg PO HS, #30, No refills Referrals: [facility] [Outside] Jameel Bates MD [Staff Provider] - 3 Weeks (f/u for meningoma)
--- NOTE | 2018-01-08 21:02 | CARD ---
APPROVED REPORT EKG Measurement Heart [id number] [place] [id number] <Conclusion> Sinus bradycardia Otherwise normal ECG
--- NOTE | 2018-01-08 21:08 | CARD ---
APPROVED REPORT EKG Measurement Heart [id number] [place] 146P34 [id number] <Conclusion> Sinus bradycardia Possible Left atrial enlargement Left ventricular hypertrophy Abnormal ECG
--- NOTE | 2018-01-08 21:21 | CARD ---
APPROVED REPORT EKG Measurement Heart [id number] DC 120P19 [id number] <Conclusion> Sinus bradycardia Otherwise normal ECG
== END 2018-01-05 12:55 | disposition home or self-care (01) | DRG 556 ==
LOC: C.ER 09:02 → C.9E 10:16 → C.6T 14:18
PROVIDERS: ADMIT Hospitalist; ATTEND Hospitalist
DX: M62.81 Muscle weakness (generalized) (principal); I10 Essential (primary) hypertension; E78.5 Hyperlipidemia, unspecified; R47.81 Slurred speech; R07.89 Other chest pain; D32.0 Benign neoplasm of cerebral meninges; R26.81 Unsteadiness on feet; R76.11 Nonspecific reaction to tuberculin skin test without active tuberculosis; R73.02 Impaired glucose tolerance (oral); Z86.73 Personal history of transient ischemic attack (TIA), and cerebral infarction without residual deficits